=== PATIENT | female | born 1975 | race Caucasian/White ===

== ENCOUNTER 2017-04-26 09:54 | Outpatient (CLI) | payer OTHER ==
[~2017-04-26] VITALS: Ht 167.6 cm; Wt 123.3 kg
[~2017-04-26 09:54] MED LIST: BACI28.42 TP; FERR325T16 PO; IBUP-1222 PO; OXYC-302 PO; PREN1TAB27 PO; SENN-1 PO
[2017-04-26 12:23] LABS: BLOOD UREA NITROGEN 4 mg/dL (7-18)
[2017-04-26 12:27] LABS: ASPARTATE AMINO TRANSFERASE 11 U/L (15-37)
[2017-04-26] MEDS ORDERED: MAALOX/HYOSCYAMINE/LIDOCAINE 45 ML BOTTLE PO ONE (13:30)
== END 2017-04-26 14:24 | disposition home or self-care (01) ==
LOC: LDOP 09:54
PROVIDERS: ATTEND Obstetrics & Gynecology
DX: O09.523 Supervision of elderly multigravida, third trimester (principal); O26.893 Other specified pregnancy related conditions, third trimester; O34.83 Maternal care for other abnormalities of pelvic organs, third trimester; E28.2 Polycystic ovarian syndrome; R11.0 Nausea; F41.9 Anxiety disorder, unspecified; R52 Pain, unspecified; Z3A.31 31 weeks gestation of pregnancy
CPT/HCPCS: 36415; 59025; 80053; 81001; 82731; 85025; 87086; 93005; 99211; G0463

== ENCOUNTER 2017-05-28 19:42 | Outpatient (CLI) | payer OTHER ==
[~2017-05-28] VITALS: Ht 167.6 cm; Wt 126.8 kg
[2017-05-28 19:51] VITALS: BP 139/85
== END 2017-05-28 20:12 | disposition home or self-care (01) ==
LOC: LDOP 19:42
PROVIDERS: ATTEND Obstetrics & Gynecology
DX: O09.523 Supervision of elderly multigravida, third trimester (principal); O26.893 Other specified pregnancy related conditions, third trimester; Z77.098 Contact with and (suspected) exposure to other hazardous, chiefly nonmedicinal, chemicals; Z3A.35 35 weeks gestation of pregnancy
CPT/HCPCS: 59025; 99211; G0463

== ENCOUNTER 2017-05-28 20:19 | Emergency (ER) | payer OTHER ==
[~2017-05-28] VITALS: Ht 167.6 cm; Wt 123.0 kg
[2017-05-28] MEDS ORDERED: ONDANSETRON ODT 8 MG PO ONE (21:30)
[2017-05-28] MEDS ORDERED: ONDANSETRON ODT 8 MG ONE (21:34)
[2017-05-28 21:45] VITALS: BP 138/79
== END 2017-05-28 22:15 | disposition home or self-care (01) ==
LOC: ED 22:00
DX: O9A.213 Injury, poisoning and certain other consequences of external causes complicating pregnancy, third trimester (principal); O26.893 Other specified pregnancy related conditions, third trimester; R42 Dizziness and giddiness; R11.0 Nausea; Z3A.35 35 weeks gestation of pregnancy
CPT/HCPCS: 99282; Q0162

== ENCOUNTER 2017-06-26 02:10 | Inpatient (IN) | payer OTHER ==
[~2017-06-26] VITALS: Ht 170.2 cm; Wt 127.0 kg
[2017-06-26] MEDS ORDERED: OXYTOCIN 30U/ 0.9% NaCL 500ML 500 ML IV SCH (05:35)
[2017-06-26] MEDS ORDERED: NEWBORN KIT ONE (05:38)
[2017-06-26] MEDS ORDERED: LACTATED RINGERS 1,000 ML IV SCH ×2 (05:45→08:58)
[2017-06-26] MEDS ORDERED: SODIUM CITRATE/CITRIC ACID 30 ML UDC PO ONE (06:00)
[2017-06-26] MEDS ORDERED: METOCLOPRAMIDE 5 MG/ML, 2ML IV ONE (06:00)
[2017-06-26] MEDS ORDERED: LACTATED RINGERS 1,000 ML IVBOLUS ONE (06:00)
[2017-06-26 06:08] LABS: HEMATOCRIT 31.9 % (34.6-47.8); HEMOGLOBIN 10.4 g/dL (11.7-16.4); WHITE BLOOD COUNT 12.1 x10^3/uL (3.4-10)
[2017-06-26 06:18] VITALS: BP 131/79
[2017-06-26] MEDS: LACTATED RINGERS 1,000 ML IV SCH ×4 (06:36→16:58)
[2017-06-26] MEDS ORDERED: morphine SULFATE/PF 1 MG/ML, 10ML ONE (07:08)
[2017-06-26] MEDS ORDERED: OXYTOCIN 30U/ 0.9% NaCL 500ML 500 ML ONE (07:18)
[2017-06-26] MEDS ORDERED: MISOPROSTOL 200 MCG TABLET ONE (07:19)
[2017-06-26] MEDS ORDERED: SODIUM CITRATE/CITRIC ACID 30 ML UDC ONE (07:19)
[2017-06-26] MEDS ORDERED: METOCLOPRAMIDE 5 MG/ML, 2ML ONE (07:19)
[2017-06-26] MEDS ORDERED: CEFAZOLIN 1,000 MG ONE (07:40)
[2017-06-26] MEDS ORDERED: PHENYLEPHRINE 10 MG/ML ONE (07:40)
[2017-06-26] MEDS ORDERED: ONDANSETRON 2MG/ML, 2ML ONE (07:40)
[2017-06-26] MEDS ORDERED: EPHEDRINE 50 MG/ML, 1ML ONE (07:40)
[2017-06-26] MEDS ORDERED: HYDROmorphone 1 MG/ML, 1ML IV PRN (08:00)
[2017-06-26] MEDS: OXYTOCIN 30U/ 0.9% NaCL 500ML 500 ML IV SCH ×2 (08:58→18:58)
[2017-06-26] MEDS ORDERED: CALCIUM CARBONATE 500 MG TAB.CHEW PO PRN (09:00)
[2017-06-26] MEDS ORDERED: METOCLOPRAMIDE 5 MG/ML, 2ML IV PRN (09:00)
[2017-06-26] MEDS ORDERED: ONDANSETRON 2MG/ML, 2ML IV PRN (09:00)
[2017-06-26] MEDS ORDERED: morphine SULFATE 10 MG/ML, 1ML IVPush PRN (09:00)
[2017-06-26] MEDS: PRENATAL VIT/IRON/FA 1 EACH TABLET PO SCH (09:00)
[2017-06-26] MEDS ORDERED: ACETAMINOPHEN 325 MG TABLET PO PRN ×2 (09:00)
[2017-06-26] MEDS ORDERED: MISOPROSTOL 200 MCG TABLET PR PRN (09:00)
[2017-06-26] MEDS ORDERED: HYDROmorphone 1 MG/ML, 1ML ONE (09:54)
[2017-06-26 11:30] VITALS: BP 116/75
[2017-06-26 15:10] VITALS: BP 124/71
[2017-06-26] MEDS: KETOROLAC 30 MG/1 ML IV PRN ×2 (15:35→21:40)
[2017-06-26 17:06] LABS: HEMATOCRIT 31.6 % (34.6-47.8); HEMOGLOBIN 10.2 g/dL (11.7-16.4); WHITE BLOOD COUNT 14.6 x10^3/uL (3.4-10)
[2017-06-26 20:00] VITALS: BP 111/70
[2017-06-27 00:10] VITALS: BP 105/68
[2017-06-27] MEDS: LACTATED RINGERS 1,000 ML IV SCH (00:58)
[2017-06-27] MEDS: OXYcodone IR 5MG TABLET PO PRN ×5 (04:03→20:34)
[2017-06-27 05:00] VITALS: BP 106/71
[2017-06-27] MEDS: DOCUSATE 100 MG CAPSULE PO PRN ×2 (07:50→20:34)
[2017-06-27] MEDS: PRENATAL VIT/IRON/FA 1 EACH TABLET PO SCH (07:50)
[2017-06-27 08:00] VITALS: BP 120/78
[2017-06-27] MEDS: IBUPROFEN 600 MG TABLET PO PRN ×3 (08:24→20:34)
[2017-06-27] MEDS ORDERED: RHOGAM FROM BLOOD BANK 1 NOTE EA IM/IV ONE (12:00)
[2017-06-27] MEDS: FERROUS GLUCONATE 324 MG TABLET PO SCH ×3 (12:06→20:34)
[2017-06-27 20:00] VITALS: BP 129/76
[2017-06-27] MEDS ORDERED: OXYC-302 PO (23:02)
[2017-06-28] MEDS: OXYcodone IR 5MG TABLET PO PRN ×6 (00:55→22:54)
[2017-06-28] MEDS: IBUPROFEN 600 MG TABLET PO PRN ×4 (04:56→22:53)
[2017-06-28 06:50] VITALS: BP 121/74
[2017-06-28] MEDS: FERROUS GLUCONATE 324 MG TABLET PO SCH ×3 (08:35→21:23)
[2017-06-28] MEDS: PRENATAL VIT/IRON/FA 1 EACH TABLET PO SCH (08:35)
[2017-06-28] MEDS: DOCUSATE 100 MG CAPSULE PO PRN ×2 (08:35→21:23)
[2017-06-28 21:10] VITALS: BP 107/67
[2017-06-29] MEDS: OXYcodone IR 5MG TABLET PO PRN ×2 (06:29→12:35)
[2017-06-29] MEDS: IBUPROFEN 600 MG TABLET PO PRN ×2 (06:29→12:35)
[2017-06-29 08:15] VITALS: BP 132/80
[2017-06-29] MEDS ORDERED: FERROUS GLUCONATE 324 MG TABLET PO SCH (09:00)
[2017-06-29] MEDS: DOCUSATE 100 MG CAPSULE PO PRN (09:14)
[2017-06-29] MEDS: FERROUS GLUCONATE 324 MG TABLET PO SCH (09:14)
[2017-06-29] MEDS: PRENATAL VIT/IRON/FA 1 EACH TABLET PO SCH (09:14)
[2017-06-29] MEDS ORDERED: OXYC-302 PO (10:21)
[2017-06-29] MEDS ORDERED: IBUP-1222 PO (10:24)
[2017-06-29] MEDS ORDERED: FERR324T8 PO (10:25)
[2017-06-29] MEDS ORDERED: DOCU-131 PO (10:26)
== END 2017-06-29 13:42 | disposition home or self-care (01) | DRG 765 ==
LOC: LDIP 05:33 → 2NW 11:16
PROVIDERS: ADMIT Obstetrics & Gynecology; ATTEND Obstetrics & Gynecology
PROC: 10D00Z1 Extraction of Products of Conception, Low, Open Approach (ICD-10-PCS; principal; 2017-06-26)
DX: O34.211 Maternal care for low transverse scar from previous cesarean delivery (principal); Z68.41 Body mass index [BMI] 40.0-44.9, adult; E66.9 Obesity, unspecified; E28.2 Polycystic ovarian syndrome; O99.824 Streptococcus B carrier state complicating childbirth; O99.214 Obesity complicating childbirth; F41.9 Anxiety disorder, unspecified; O99.284 Endocrine, nutritional and metabolic diseases complicating childbirth; O99.344 Other mental disorders complicating childbirth; O99.02 Anemia complicating childbirth; D64.9 Anemia, unspecified; Z83.3 Family history of diabetes mellitus; Z82.49 Family history of ischemic heart disease and other diseases of the circulatory system; Z37.0 Single live birth; Z3A.39 39 weeks gestation of pregnancy
CPT/HCPCS: 36415; 85025; 85461; 86850; 86900; J0690; J1170; J1885; J2274; J2405; J2790; J2370; J2590; J2765; J7120

== ENCOUNTER 2017-07-02 16:21 | Emergency (ER) | payer OTHER ==
[~2017-07-02] VITALS: Ht 170.2 cm; Wt 130.0 kg
[~2017-07-02 16:21] MED LIST changes: +DOCU-131 PO; +FERR324T8 PO
[2017-07-02] MEDS ORDERED: SODIUM CHLORIDE 0.9% 1,000ML IVBOLUS ONE (17:00)
[2017-07-02 17:16] LABS: HEMATOCRIT 31.4 % (34.6-47.8); WHITE BLOOD COUNT 10.3 x10^3/uL (3.4-10)
[2017-07-02 17:20] LABS: BLOOD UREA NITROGEN 11 mg/dL (7-18)
[2017-07-02 17:25] LABS: ASPARTATE AMINO TRANSFERASE 7 U/L (15-37); IS PT STATUS REG ER OR PRE ER? YES
[2017-07-02] MEDS ORDERED: OMNIPAQUE 350 MG/ML, 100ML BOTTLE ONE (18:21)
[2017-07-02 18:36] VITALS: BP 149/68
[2017-07-02 18:38] LABS: PATH.CAST-FLAG NOT PRESENT; SPERM-FLAG NOT PRESENT; SRC-FLAG NOT PRESENT; XTAL-FLAG NOT PRESENT; YLC-FLAG NOT PRESENT
== END 2017-07-02 19:03 | disposition home or self-care (01) ==
LOC: ED 17:42
DX: R07.2 Precordial pain (principal); R42 Dizziness and giddiness; R06.00 Dyspnea, unspecified
CPT/HCPCS: 36415; 71275; 80053; 81001; 83880; 84484; 85025; 87086; 93005; 93970; 99285; Q9967

== ENCOUNTER 2021-02-11 15:16 | Emergency (ER) | payer OTHER ==
[~2021-02-11] VITALS: Ht 170.2 cm; Wt 127.8 kg
[~2021-02-11 15:16] MED LIST changes: -OXYC-302 PO; +OXYC1TAB14 PO; +PROP20TA PO; -SENN-1 PO; +SENN-92 PO
--- NOTE | 2021-02-11 15:49 | NUR ---
BREAK RN: PT REPORTS SHE HAS HAD CENTER CHEST PAIN THAT COMES AND GOES X2 DAYS. TODAY, PT REPORTS SHE GOT A HEADACHE TODAY WITH SOME DIZZINESS/CHEST PAIN. PT REPORTS SHE FELT DISORIENTED. TACTICAL DECEPTION PLANS OFFICER ON. NSR NOTED. CALL LIGHT IN PLACE. WILL CONTINUE TO MONITOR WHILE PRIMARY RN IS ON BREAK.
--- NOTE | 2021-02-11 15:56 | NUR ---
Pt still feeling a little disoriented after episode that happened earlier at work, nausea has improved, pt reports taking ASA to relieve MCCOLLUM. Chest pain is still intermittent. PARTHS, MARLEN.
--- NOTE | 2021-02-11 15:57 | NUR ---
BEDSIDE REPORT GIVEN TO JUANA BEJARANO
--- NOTE | 2021-02-11 16:04 | NUR ---
Recieved report from fidel ARIAS
[2021-02-11] MEDS ORDERED: MAALOX/HYOSCYAMINE/LIDOCAINE 45 ML BTL ONE (16:21)
[2021-02-11] MEDS ORDERED: SODIUM CHLORIDE 0.9% 1,000ML IVBOLUS ONE (16:30)
[2021-02-11] MEDS ORDERED: MAALOX/HYOSCYAMINE/LIDOCAINE 45 ML BTL PO ONE (16:30)
--- NOTE | 2021-02-11 16:33 | NUR ---
Pt refused IV and IV fluids, GI cocktail given per MAR
[2021-02-11 16:41] LABS: BASOPHILS % (AUTO) 1 % (0-1); EOSINOPHILS % (AUTO) 4 % (1-7); LYMPHOCYTES % (AUTO) 18 % (22-44); MEAN CORPUSCULAR HGB CONC 32.7 g/dL (32.4-35.8); MEAN PLATELET VOLUME 8.5 fL (7.4-10.4); MONOCYTES % (AUTO) 8 % (2-9); NEUTROPHILS % (AUTO) 70 % (42-75); PLATELET COUNT 265 x10^3/uL (130-400); RED BLOOD COUNT 4.63 x10^6/uL (3.82-5.3); RED CELL DISTRIBUTION WIDTH 14.4 % (9.6-15.2)
[2021-02-11 16:42] LABS: MD NO
[2021-02-11 16:53] LABS: ALBUMIN 3.4 g/dL (3.4-5.0); ANION GAP 4 mmol/L (5-15); CALCIUM 8.8 mg/dL (8.5-10.1); CHLORIDE 109 mmol/L (98-107); CREATININE 0.76 mg/dL (0.55-1.02)
[2021-02-11 16:57] LABS: TROPONIN I < 0.015 ng/mL (0.000-0.045)
[2021-02-11 17:38] VITALS: BP 116/60
== END 2021-02-11 17:41 | disposition home or self-care (01) ==
LOC: ED 17:15
DX: R42 Dizziness and giddiness (principal); R07.89 Other chest pain; R11.0 Nausea; I10 Essential (primary) hypertension; Z87.891 Personal history of nicotine dependence
CPT/HCPCS: 36415; 71045; 80048; 82040; 84484; 84703; 85025; 93005; 99285

== ENCOUNTER 2021-04-16 13:38 | Emergency (ER) | payer OTHER ==
[~2021-04-16] VITALS: Ht 170.2 cm; Wt 130.5 kg
--- NOTE | 2021-04-16 13:48 | NUR ---
PT AMBULATORY TO ROOM FROM TRIAGE, WITH UPRIGHT STEADY GAIT. PT CHANGED INTO GOWN, MONITORS IN PLACE. CALL LIGHT WITHIN REACH
--- NOTE | 2021-04-16 13:57 | NUR ---
PA AT BS
[2021-04-16 14:32] VITALS: BP 133/74
--- NOTE | 2021-04-16 14:44 | NUR ---
PT SITTING ON GURNEY, ON HER PHONE. NADN/VSS. CALL LIGHT WITHIN REACH. COMFORT MEASURES PROVIDED.
--- NOTE | 2021-04-16 14:53 | NUR ---
PT TO CT
--- NOTE | 2021-04-16 15:30 | NUR ---
Patient/Caregiver given discharge instructions and they have confirmed that they understand the instructions. Patient ambulatory with steady gait.
== END 2021-04-16 15:31 | disposition home or self-care (01) ==
LOC: ED 15:01
DX: S06.0X0A Concussion without loss of consciousness, initial encounter (principal); S00.83XA Contusion of other part of head, initial encounter; I10 Essential (primary) hypertension; X58.XXXA Exposure to other specified factors, initial encounter; Y93.89 Activity, other specified; Y92.009 Unspecified place in unspecified non-institutional (private) residence as the place of occurrence of the external cause; Y99.8 Other external cause status
CPT/HCPCS: 70450; 99284